=== PATIENT | female | born 1990 | race Hispanic/Latino ===

== ENCOUNTER 2024-11-18 10:46 | Inpatient (IN) | payer MEDICAID, OTHER ==
[~2024-11-18] VITALS: Ht 149.9 cm; Wt 79.4 kg
[~2024-11-18 10:46] MED LIST: IRON18TA PO; PREN-66 PO
--- NOTE | 2024-11-18 11:02 | ERN ---
General Chief Complaint: Fever Stated Complaint: FLU SYMPTOMS Time Seen by MD: 10:47 Time Seen by Midlevel: 10:47 Source: patient History of Present Illness Initial Comments 34-year-old female with no significant past medical history presenting to the emergency department with fever and lower back pain. Patient states three days ago she developed dysuria. She reports taking nily-dod-dhhjinh medication which helped improve her symptoms however today she developed a high fever with lower back pain and is concerned she may have a kidney infection. She also reports associated nausea and vomiting. Denies any other symptoms. Allergies: Coded Allergies: No Known Allergies (Unverified Allergy, Unknown, 11/08/15) Home Meds Reported Medications Iron (Iron) 18 Mg Tablet, 18 MG PO DAILY, TAB 11/08/15 Wpr462/Iron Fumarate/FA/Dss ( 19 Tablet) 1 Each Tablet, 1 EACH PO DAILY, TAB 11/08/15 Past Medical History Past Medical History: No Pertinent History Past Surgical History: BTL, ROS Dictation CONSTITUTIONAL: Negative except for HPI HEAD/FACE: Negative except for HPI EENT: Negative except for HPI RESPIRATORY: Negative except for HPI GASTROINTESTINAL/ABDOMINAL: Negative except for HPI GENITOURINARY: Negative except for HPI MUSCULOSKELETAL: Negative except for HPI INTEGUMENTARY: Negative except for HPI NEUROLOGICAL/PSYCH: Negative except for HPI HEMATOLOGIC/LYMPHATIC: Negative except for HPI All Systems Negative, Except as noted above. 13 point review of systems assessed and all negative except for above. Physical Exam Physical Exam Dictation Vital Signs reviewed General Appearance: Alert, oriented x 3, no acute distress, febrile Head and Face: non-traumatic. Eyes: PERRL, pink conjunctivas, eyelid no trauma, anterior chamber with arcus senilis. Ears: Pinnas intact and no signs of trauma or erythema ear canals clear and no discharge TM no erythema Nose: No discharge, no bleeding. Oropharynx: Mouth normal, tongue pink, pharynx clear,no erythema, tonsils no exudates, no abscesses noted, mucous membrane moist Neck: Supple, non-tender, no thyromegaly, no masses, no JVD, no bruits Breast:Deferred Chest:No tenderness, no crepitus, no paradoxical movement, no retractions Lungs:Clear, well-ventilated, symmetric, no rales, no wheezing, no rhonchi, no stridor, good breath sounds bilaterally Heart: Tachycardic, regular rhythm, no murmur, no gallops Vascular: no peripheral edema, Abdomen: Soft, positive bowel sounds, nondistended, no guarding, nontender, no rebound, no masses no hepatomegaly, no splenomegaly, no Yu's sign, no hernias. Rectal: Deferred Genital: Deferred Neurological: Normal speech, motor function intact, sensory function intact Musculoskeletal: Neck nontender, full range of motion, back nontender, full range of motion, Extremities: nontender, full range of motion Skin: Color pink, dry, no turgor, no rash, no lacerations, no abrasions, no contusions. Lymphatic: Deferred Results Laboratory and Microbiology Lab and Micro Result Laboratory Tests Test 11/18/24 11:12 11/18/24 12:25 White Blood Count 13.3 K/uL (4.8-10.8) H Red Blood Count 5.19 MIL/uL (4.00-5.50) Hemoglobin 10.1 g/dL (12.0-16.0) L Hematocrit 35.9 % (36-48) L Mean Corpuscular Volume 69.2 fL (79-99) L Mean Corpuscular Hemoglobin 19.5 pg (27.0-33.0) L Mean Corpuscular Hemoglobin Concent 28.1 g/dL (32.0-36.0) L Red Cell Distribution Width 19.1 % (11.0-15.5) H Platelet Count 269 K/uL (130-400) Mean Platelet Volume 11.1 fL (7.5-10.5) H Immature Granulocyte % (Auto) 0.5 % (0-1) Neutrophils (%) (Auto) 76.8 % (40.0-77.0) Lymphocytes (%) (Auto) 11.9 % (21.0-51.0) L Monocytes (%) (Auto) 10.4 % (3.0-13.0) Eosinophils (%) (Auto) 0.2 % (0.0-8.0) Basophils (%) (Auto) 0.2 % (0.0-5.0) Neutrophils # (Auto) 10.2 K/uL (1.8-7.7) H Lymphocytes # (Auto) 1.6 K/uL (1.0-4.8) Monocytes # (Auto) 1.4 K/uL (0.1-1.0) H Eosinophils # (Auto) 0.03 K/uL (0.00-0.70) Basophils # (Auto) 0.03 K/uL (0.00-0.20) Absolute Immature Granulocyte (auto 0.06 K/uL (0-1) Nucleated Red Blood Cells 0.0 % (0.0-0.19) Red Blood Cell Morphology See comments Sodium Level 132 mmol/L (136-145) L Potassium Level 3.3 mmol/L (3.5-5.1) L Chloride Level 95 mmol/L (101-111) L Carbon Dioxide Level 27 mmol/L (21-32) Blood Urea Nitrogen 6 mg/dL (7-18) L Creatinine 0.7 mg/dL (0.5-1.0) Glomerular Filtration Rate Calc 118 mL/min (>90) Random Glucose 118 mg/dL (70-105) H Lactic Acid Level 2.4 mmol/L (0.8-2.5) Total Calcium 9.5 mg/dL (8.5-10.1) Procalcitonin 0.64 ng/mL (0.05-0.5) H Serum Test, Qualitative NEGATIVE (NEGATIVE) Urine Color YELLOW (YELLOW) Urine Appearance CLOUDY (CLEAR) H Urine pH 7.0 (5.0-8.0) Urine Specific [place] 1.007 (1.001-1.031) Urine Protein 50 mg/dL (NEGATIVE) H Urine Glucose (UA) NEGATIVE mg/dL (NEGATIVE) Urine Ketones NEGATIVE mg/dL (NEGATIVE) Urine Occult Blood SMALL (NEGATIVE) H Urine Nitrate 2+ (NEGATIVE) H Urine Bilirubin NEGATIVE mg/dL (NEGATIVE) Urine Urobilinogen 0.2 mg/dL (0.2-1.0) Urine Leukocyte Esterase 500 Damon/uL (NEGATIVE) H Urine RBC 2-5 /HPF (0-1) H Urine WBC 26-50 /HPF (0-1) H Urine Squamous Epithelial Cells MANY /HPF (0-2) Urine Amorphous Crystals (Auto) RARE /LPF (None Seen) Urine Bacteria MANY /HPF (None Seen) Labs Reviewed?: Yes MDM MDM: Differential diagnosis: Sepsis, pyelonephritis, urinary tract infection Rationale: Tests considered and ordered secondary to shared decision making include: Previous outside records reviewed: Old ER visits. Risk of complication and/or morbidity or mortality of patient management: None Medications-Per medication reconciliation Need for hospitalization: Patient does meet criteria for hospitalization. Need for emergency major/minor surgery: No There are no social concerns with this patient. Prescription drug management Prescriptions will include symptomatic care Patient's prior external medical records from other ER visits were reviewed by me as indicated. Prior testing and results from previous visits were reviewed. Prior tests were taken into account with medical decision making and resource utilization, independent historian/historians were used to obtain complete medical history. I independently interpreted the test that were performed, results were reviewed by me and considered findings on radiology if ordered. Medical management and examination interpretation discussions were had by me with other qualified healthcare professionals as indicated for the patient's care. ED Course Orders Procedure Category Date Status Time Cbc With Differential LAB 11/18/24 Complete 10:52 Basic Metabolic Panel LAB 11/18/24 Complete 10:52 Blood Cult YUDITH 11/18/24 In Process 10:52 Lactic Acid LAB 11/18/24 Complete 10:52 Testing, LAB 11/18/24 Complete Serum Hcg 10:52 Procalcitonin LAB 11/18/24 Complete 10:52 Urinalysis Profile LAB 11/18/24 Complete 10:52 Acetaminophen 500mg PHA 11/18/24 Complete Tab (Tylenol 500mg T 11:00 0.9%Nacl 1000ml (Ns PHA 11/18/24 Complete 1000ml) 11:00 Ceftriaxone 2gm Vial PHA 11/18/24 Complete (Rocephin 2gm Inj) 11:00 0.9%Nacl 1000ml (Ns PHA 11/18/24 In Process 1000ml) 13:00 Culture Urine YUDITH 11/18/24 Logged 12:51 Current Medications Medications (Trade) Dose Ordered Sig/Deuce Route PRN Reason Start Time Stop Time Status Last Admin Dose Admin Acetaminophen (TYLenol 500MG TAB) 1,000 mg ONCE ONCE PO 11/18/24 11:11/18/24 11:03 DC Ceftriaxone Sodium (Rocephin 2gm Inj) 2 gm ONCE ONCE IVPB 11/18/24 11:00 11/18/24 11:03 DC Sodium Chloride 1,000 ml @ 0 mls/hr ONCE ONCE IV 11/18/24 11:00 11/18/24 11:03 DC Sodium Chloride 2,394 ml @ 798 mls/hr ONCE ONCE IV 11/18/24 13:00 11/18/24 15:59 Vital Signs Date Time Temp Pulse Resp B/P (MAP) Pulse Ox O2 Delivery O2 Flow Rate FiO2 11/18/24 10:50 102.2 127 18 154/111 97 Room Air 0 DX & DISP Disposition: Inpatient Decision to Admit Date: Nov 18, 2024 Decision to Admit Time: 12:57 Departure Impression: Primary Impression: Sepsis Additional Impressions: Urinary tract infection, Leukocytosis, Elevated procalcitonin Condition: Stable Referrals: ADRIA FRAZIER MD (PCP) I have reviewed the case, and I agree with, Diagnosis and Plan I performed the substantive portion of the visit. I have reviewed and personal ly made and approve the management plan that is documented in the note by myself or the HAYLIE. I acknowledge for responsibility for the patient's management plan. HELEN LUCIO Nov 18, 2024 11:02
--- NOTE | 2024-11-18 11:30 | NUR ---
LAC-2.4 ERMD MADE AWARE
[2024-11-18 11:34] LABS: CREATININE 0.7 mg/dL (0.5-1.0); POTASSIUM 3.3 mmol/L (3.5-5.1)
[2024-11-18 11:40] LABS: BASOPHILS # (AUTO) 0.03 K/uL (0.00-0.20); BASOPHILS % (AUTO) 0.2 % (0.0-5.0); EOSINOPHILS # (AUTO) 0.03 K/uL (0.00-0.70); EOSINOPHILS % (AUTO) 0.2 % (0.0-8.0); HEMATOCRIT 35.9 % (36-48); IMMATURE GRANULOCYTE ABSOLUTE 0.06 K/uL (0-1); LYMPHOCYTES # (AUTO) 1.6 K/uL (1.0-4.8); LYMPHOCYTES % (AUTO) 11.9 % (21.0-51.0); MEAN CORPUSCULAR HEMOGLOBIN 19.5 pg (27.0-33.0); MEAN CORPUSCULAR HGB CONC 28.1 g/dL (32.0-36.0); MEAN CORPUSCULAR VOLUME 69.2 fL (79-99); MONOCYTES # (AUTO) 1.4 K/uL (0.1-1.0); MONOCYTES % (AUTO) 10.4 % (3.0-13.0); NEUTROPHILS # (AUTO) 10.2 K/uL (1.8-7.7); NEUTROPHILS % (AUTO) 76.8 % (40.0-77.0); PLATELET COUNT (AUTO) 269 K/uL (130-400); RED BLOOD CELL COUNT(AUTO) 5.19 MIL/uL (4.00-5.50); RED CELL DISTRIBUTION WIDTH 19.1 % (11.0-15.5); WHITE BLOOD COUNT (AUTO) 13.3 K/uL (4.8-10.8)
[2024-11-18 12:48] LABS: APPEARANCE,URINE CLOUDY (CLEAR); BILIRUBIN,URINE NEGATIVE (NEGATIVE); COLOR,URINE YELLOW (YELLOW); GLUCOSE, URINE (UA) NEGATIVE (NEGATIVE); KETONES,URINE NEGATIVE (NEGATIVE); LEUKOCYTE ESTERASE ,URINE 500 Leu/uL (NEGATIVE); NITRATE,URINE 2+ (NEGATIVE); OCCULT BLOOD,URINE SMALL (NEGATIVE); PROTEIN,URINE 50 mg/dL (NEGATIVE); UROBILINOGEN,URINE 0.2 mg/dL (0.2-1.0)
[2024-11-18 12:51] LABS: ADD UA MICROSCOPIC YES
[2024-11-18 12:53] LABS: BACTERIA,URINE MANY /HPF (None Seen); MUCUS,URINE RARE LPF (None Seen); SQUAMOUS EPITHELIAL CELL,UR MANY /HPF (0-2); WBC,URINE 26-50 /HPF (0-1)
[2024-11-18] MEDS: 0.9%NACL 1000ML 2,394 ML IV ONE (12:57)
[2024-11-18] MEDS: 0.9%NACL 1000ML 1,000 ML IV ONE (12:57)
[2024-11-18] MEDS: CEFTRIAXONE 2GM VIAL IVPB ONE (12:58)
[2024-11-18] MEDS: acetaMINOPHEN 500 MG TABLET PO ONE (12:58)
--- NOTE | 2024-11-18 13:22 | HP ---
[facility] HISTORY AND PHYSICAL Date of Service: Nov 18, 2024 Time of Service: 13:22 HISTORY OF PRESENT ILLNESS: [ ] REVIEW OF SYSTEMS CONSTITUTIONAL: Denies fevers, chills, or night sweats. No unintentional weight loss reported. NEUROLOGICAL: Denies headache, amaurosis fugax, motor weakness, sensory deficit, vertigo/spinning sensation, gait abnormalities, or tremors. ENT: No hearing loss, otalgia, otorrhea, rhinitis, rhinorrhea, hoarseness, or sore throat. CARDIOVASCULAR: Denies any exertional angina, dyspnea on exertion, orthopnea, paroxysmal nocturnal dyspnea, palpitations, life-threatening arrhythmias, claudication. PULMONARY: Denies any shortness of breath, cough, phlegm/sputum, hemoptysis, pleuritic chest pain. SLEEP: Denies morning headaches, daytime somnolence or napping. Denies difficulty falling asleep, staying asleep, waking from sleep. Denies knowledge of snoring. GASTROINTESTINAL: Denies any type of dysphagia to either liquids or solids. Denies nausea, vomiting, pyrosis, early satiety, abdominal pain, diarrhea, constipation, or changes in stool consistency or caliber. Denies coffee-ground emesis, hematemesis, hematochezia, or melanotic stools. GENITOURINARY: Denies frequency, urgency, nocturia, hematuria or incontinence (Storage/Irritative symptoms.) Low urinary stream, straining to void, urinary intermittency or hesitancy, splitting of the voiding stream, terminal dribbling. ENDOCRINOLOGIC: Denies polyuria, polydipsia, polyphagia or heat/cold intolerances. HEMATOLOGIC: Denies thrombophilia/previous clots, or coagulopathy/bleeding disorders. ONCOLOGIC: Denies personal history of malignancy. DERMATOLOGIC: Denies rashes or pruritus. PSYCHIATRIC: Denies any suicidal or homicidal ideation. Denies hallucinations. PAST MEDICAL HISTORY: [ ] PAST SURGICAL HISTORY: [ ] PAST SOCIAL HISTORY: [ ] FAMILY HISTORY: [ ] Coded Allergies: No Known Allergies (Unverified Allergy, Unknown, 11/08/15) PHYSICAL EXAM GENERAL APPEARANCE: The patient is awake, alert, and oriented, in no acute cardiopulmonary distress. NEUROLOGICAL: Cranial nerves II-XII grossly intact. Motor is 5/5 in bilateral upper and lower extremities proximal to distal. No sensory deficits. HEENT: Face is symmetric. Pupils are equal and reactive. Extraocular movements are intact. NECK: Supple. No JVD. No thyromegaly. No submental, submandibular, pre- /postauricular, occipital or supraclavicular lymphadenopathy. CHEST: Normal chest expansion. No Telemetry. LUNGS: Absence of any rales, rhonchi or any wheezing. CARDIOVASCULAR: Regular. S1 and S2 normal. No appreciable rubs, murmurs or gallops. ABDOMEN: Soft, nontender, and nondistended. There is no rebound, voluntary guarding, or rigidity. : Deferred. No Vázquez. EXTREMITIES: Non-edematous and not cyanotic. No clubbing. Good capillary refill. SKIN: No skin breakdown. Vital Sign (Last 24 Hours) 11/18/24 10:50 Temp 102.2 Pulse 127 Resp 18 B/P (MAP) 154/111 Pulse Ox 97 O2 Delivery Room Air O2 Flow Rate 0 LABS: Laboratory: Test 11/18/24 12:25 11/18/24 11:12 Range/Units Urine Color YELLOW YELLOW Urine Appearance CLOUDY H CLEAR Urine pH 7.0 5.0-8.0 Urine Specific [place] 1.007 1.001-1.031 Urine Protein 50 H NEGATIVE mg/dL Urine Glucose (UA) NEGATIVE NEGATIVE mg/dL Urine Ketones NEGATIVE NEGATIVE mg/dL Urine Occult Blood SMALL H NEGATIVE Urine Nitrate 2+ H NEGATIVE Urine Bilirubin NEGATIVE NEGATIVE mg/dL Urine Urobilinogen 0.2 0.2-1.0 mg/dL Urine Leukocyte Esterase 500 H NEGATIVE Damon/uL Urine RBC 2-5 H 0-1 /HPF Urine WBC 26-50 H 0-1 /HPF Urine Squamous Epithelial Cells MANY 0-2 /HPF Urine Amorphous Crystals (Auto) RARE None Seen /LPF Urine Bacteria MANY None Seen /HPF White Blood Count 13.3 H 4.8-10.8 K/uL Red Blood Count 5.19 4.00-5.50 MIL/uL Hemoglobin 10.1 L 12.0-16.0 g/dL Hematocrit 35.9 L 36-48 % Mean Corpuscular Volume 69.2 L 79-99 fL Mean Corpuscular Hemoglobin 19.5 L 27.0-33.0 pg Mean Corpuscular Hemoglobin Concent 28.1 L 32.0-36.0 g/dL Red Cell Distribution Width 19.1 H 11.0-15.5 % Platelet Count 269 130-400 K/uL Mean Platelet Volume 11.1 H 7.5-10.5 fL Immature Granulocyte % (Auto) 0.5 0-1 % Neutrophils (%) (Auto) 76.8 40.0-77.0 % Lymphocytes (%) (Auto) 11.9 L 21.0-51.0 % Monocytes (%) (Auto) 10.4 3.0-13.0 % Eosinophils (%) (Auto) 0.2 0.0-8.0 % Basophils (%) (Auto) 0.2 0.0-5.0 % Neutrophils # (Auto) 10.2 H 1.8-7.7 K/uL Lymphocytes # (Auto) 1.6 1.0-4.8 K/uL Monocytes # (Auto) 1.4 H 0.1-1.0 K/uL Eosinophils # (Auto) 0.03 0.00-0.70 K/uL Basophils # (Auto) 0.03 0.00-0.20 K/uL Absolute Immature Granulocyte (auto 0.06 0-1 K/uL Nucleated Red Blood Cells 0.0 0.0-0.19 % Red Blood Cell Morphology See comments Sodium Level 132 L 136-145 mmol/L Potassium Level 3.3 L 3.5-5.1 mmol/L Chloride Level 95 L 101-111 mmol/L Carbon Dioxide Level 27 21-32 mmol/L Blood Urea Nitrogen 6 L 7-18 mg/dL Creatinine 0.7 0.5-1.0 mg/dL Glomerular Filtration Rate Calc 118 >90 mL/min Random Glucose 118 H 70-105 mg/dL Lactic Acid Level 2.4 0.8-2.5 mmol/L Total Calcium 9.5 8.5-10.1 mg/dL Procalcitonin 0.64 H 0.05-0.5 ng/mL Serum Test, Qualitative NEGATIVE NEGATIVE Current Medications Medications (Trade) Dose Ordered Sig/Deuce Route PRN Reason Start Time Stop Time Status Last Admin Dose Admin Acetaminophen (TYLenol 325MG TAB) 650 mg Q6H PRN PO MILD PAIN (1-3) 11/18/24 13:30 12/18/24 13:29 Famotidine (Pepcid 20mg Vial) 20 mg BID IV 11/18/24 21:00 12/18/24 20:59 Magnesium Sulfate 50 ml @ 0 mls/hr PROTOCOL IV 11/18/24 13:30 12/18/24 13:29 Ondansetron HCl (zoFRAN 4MG INJ) 4 mg Q6H PRN IVP NAUSEA/VOMITING 11/18/24 13:30 12/18/24 13:29 Piperacillin Sod/ Tazobactam Sod (Zosyn 3.375gm+NS 50ml) 3.375 gm Q8H IVPB 11/18/24 13:30 11/28/24 13:29 Sodium Chloride 1,000 ml @ 75 mls/hr [id number] IV 11/18/24 15:30 12/18/24 15:29 Sodium Chloride (NS 50ml) 50 ml AD IV 11/18/24 13:30 11/18/24 13:13 DC DIAGNOSTICS / RADIOLOGY: [ ] ASSESSMENT: [ ] PLAN: [ ] IZABEL JOHNSON MD Nov 18, 2024 13:22
[2024-11-18 13:27] LABS: INR 1.12 (0.85-1.15); PROTHROMBIN TIME 11.7 SEC (9.6-11.6)
[2024-11-18 13:28] LABS: PARTIAL THROMBOPLASTIN TIME 21.7 SEC (26.3-35.5)
[2024-11-18] MEDS ORDERED: 0.9%NACL 50ML IV SCH (13:30)
[2024-11-18] MEDS ORDERED: MAGNESIUM 2GM PREMIX 50ML 50 ML IV SCH (13:30)
--- NOTE | 2024-11-18 13:34 | HP ---
[facility] HISTORY AND PHYSICAL Date of Service: Nov 18, 2024 Time of Service: 13:28 HISTORY OF PRESENT ILLNESS: Date of service: 11/18/2024, patient was seen in ER hallway This is a 34-year-old female with no underlying history of significant past medical history who presented to the ER for further evaluation of fever and lower back pain. Patient states that symptoms have been ongoing since Saturday where she noticed she was having nausea with foul-smelling urine. Denies any vaginal discharge. She took [id number] medications as she suspected she was having UTI. She complains of having nausea and diarrhea as well, she complains of having suprapubic discomfort. Denies any rhinorrhea or congestion otherwise. On presentation to the hospital, patient was noted to be febrile with T-max of 102.2 F, heart rate of 127, blood pressure of 154/111. Labs [place] [address], hemoglobin of 10.1, platelet count of 894940. BMP remarkable for sodium of 132, potassium 3.3, chloride of 95, creatinine of 0.7, lactic acid of 2.4 and procalcitonin of 0.64. Urinalysis significant for cloudy urine with nitrite positive, leukocyte esterase positive, pyuria, bacteriuria. Patient will be admitted for further management of sepsis secondary to complicated UTI. We will monitor this patient closely anticipate hospitalization for 48-72 hours given underlying sepsis. Consultation with Infectious Disease will be requested as well. REVIEW OF SYSTEMS CONSTITUTIONAL: Denies fevers, chills, or night sweats. No unintentional weight loss reported. NEUROLOGICAL: Denies headache, amaurosis fugax, motor weakness, sensory deficit, vertigo/spinning sensation, gait abnormalities, or tremors. ENT: No hearing loss, otalgia, otorrhea, rhinitis, rhinorrhea, hoarseness, or sore throat. CARDIOVASCULAR: Denies any exertional angina, dyspnea on exertion, orthopnea, paroxysmal nocturnal dyspnea, palpitations, life-threatening arrhythmias, claudication. PULMONARY: Denies any shortness of breath, cough, phlegm/sputum, hemoptysis, pleuritic chest pain. SLEEP: Denies morning headaches, daytime somnolence or napping. Denies difficulty falling asleep, staying asleep, waking from sleep. Denies knowledge of snoring. GASTROINTESTINAL: Patient reports having 1-2 episodes of diarrhea GENITOURINARY: Increased urinary frequency with foul-smelling urine, suprapubic discomfort ENDOCRINOLOGIC: Denies polyuria, polydipsia, polyphagia or heat/cold intolerances. HEMATOLOGIC: Denies thrombophilia/previous clots, or coagulopathy/bleeding disorders. ONCOLOGIC: Denies personal history of malignancy. DERMATOLOGIC: Denies rashes or pruritus. PSYCHIATRIC: Denies any suicidal or homicidal ideation. Denies hallucinations. PAST MEDICAL HISTORY: Prior history of heavy periods which patient states has improved, obesity PAST SURGICAL HISTORY: History of , tubal ligation PAST SOCIAL HISTORY: Denies active smoking or alcohol consumption FAMILY HISTORY: Denies pertinent family history Allergies: No known drug allergies Coded Allergies: No Known Allergies (Unverified Allergy, Unknown, 11/08/15) PHYSICAL EXAM GENERAL APPEARANCE: The patient is awake, alert, and oriented, in no acute cardiopulmonary distress. NEUROLOGICAL: Cranial nerves II-XII grossly intact. Motor is 5/5 in bilateral upper and lower extremities proximal to distal. No sensory deficits. HEENT: Face is symmetric. Pupils are equal and reactive. Extraocular movements are intact. NECK: Supple. No JVD. No thyromegaly. No submental, submandibular, pre- /postauricular, occipital or supraclavicular lymphadenopathy. CHEST: Normal chest expansion. No Telemetry. LUNGS: Absence of any rales, rhonchi or any wheezing. CARDIOVASCULAR: Regular. S1 and S2 normal. No appreciable rubs, murmurs or gallops. ABDOMEN: Soft, nontender, and nondistended. Mild tenderness to palpation of the suprapubic region : Deferred. No Vázquez. EXTREMITIES: Non-edematous and not cyanotic. No clubbing. Good capillary refill. SKIN: No skin breakdown. Vital Sign (Last 24 Hours) 11/18/24 10:50 Temp 102.2 Pulse 127 Resp 18 B/P (MAP) 154/111 Pulse Ox 97 O2 Delivery Room Air O2 Flow Rate 0 LABS: Laboratory: Test 11/18/24 12:25 11/18/24 11:12 Range/Units Urine Color YELLOW YELLOW Urine Appearance CLOUDY H CLEAR Urine pH 7.0 5.0-8.0 Urine Specific [place] 1.007 1.001-1.031 Urine Protein 50 H NEGATIVE mg/dL Urine Glucose (UA) NEGATIVE NEGATIVE mg/dL Urine Ketones NEGATIVE NEGATIVE mg/dL Urine Occult Blood SMALL H NEGATIVE Urine Nitrate 2+ H NEGATIVE Urine Bilirubin NEGATIVE NEGATIVE mg/dL Urine Urobilinogen 0.2 0.2-1.0 mg/dL Urine Leukocyte Esterase 500 H NEGATIVE Damon/uL Urine RBC 2-5 H 0-1 /HPF Urine WBC 26-50 H 0-1 /HPF Urine Squamous Epithelial Cells MANY 0-2 /HPF Urine Amorphous Crystals (Auto) RARE None Seen /LPF Urine Bacteria MANY None Seen /HPF White Blood Count 13.3 H 4.8-10.8 K/uL Red Blood Count 5.19 4.00-5.50 MIL/uL Hemoglobin 10.1 L 12.0-16.0 g/dL Hematocrit 35.9 L 36-48 % Mean Corpuscular Volume 69.2 L 79-99 fL Mean Corpuscular Hemoglobin 19.5 L 27.0-33.0 pg Mean Corpuscular Hemoglobin Concent 28.1 L 32.0-36.0 g/dL Red Cell Distribution Width 19.1 H 11.0-15.5 % Platelet Count 269 130-400 K/uL Mean Platelet Volume 11.1 H 7.5-10.5 fL Immature Granulocyte % (Auto) 0.5 0-1 % Neutrophils (%) (Auto) 76.8 40.0-77.0 % Lymphocytes (%) (Auto) 11.9 L 21.0-51.0 % Monocytes (%) (Auto) 10.4 3.0-13.0 % Eosinophils (%) (Auto) 0.2 0.0-8.0 % Basophils (%) (Auto) 0.2 0.0-5.0 % Neutrophils # (Auto) 10.2 H 1.8-7.7 K/uL Lymphocytes # (Auto) 1.6 1.0-4.8 K/uL Monocytes # (Auto) 1.4 H 0.1-1.0 K/uL Eosinophils # (Auto) 0.03 0.00-0.70 K/uL Basophils # (Auto) 0.03 0.00-0.20 K/uL Absolute Immature Granulocyte (auto 0.06 0-1 K/uL Nucleated Red Blood Cells 0.0 0.0-0.19 % Red Blood Cell Morphology See comments Prothrombin Time 11.7 H 9.6-11.6 SEC Prothromb Time International Ratio 1.12 0.85-1.15 Sodium Level 132 L 136-145 mmol/L Potassium Level 3.3 L 3.5-5.1 mmol/L Chloride Level 95 L 101-111 mmol/L Carbon Dioxide Level 27 21-32 mmol/L Blood Urea Nitrogen 6 L 7-18 mg/dL Creatinine 0.7 0.5-1.0 mg/dL Glomerular Filtration Rate Calc 118 >90 mL/min Random Glucose 118 H 70-105 mg/dL Lactic Acid Level 2.4 0.8-2.5 mmol/L Total Calcium 9.5 8.5-10.1 mg/dL Procalcitonin 0.64 H 0.05-0.5 ng/mL Serum Test, Qualitative NEGATIVE NEGATIVE Current Medications Medications (Trade) Dose Ordered Sig/Deuce Route PRN Reason Start Time Stop Time Status Last Admin Dose Admin Acetaminophen (TYLenol 325MG TAB) 650 mg Q6H PRN PO MILD PAIN (1-3) 11/18/24 13:30 12/18/24 13:29 Famotidine (Pepcid 20mg Vial) 20 mg BID IV 11/18/24 21:00 12/18/24 20:59 Magnesium Sulfate 50 ml @ 0 mls/hr PROTOCOL IV 11/18/24 13:30 12/18/24 13:29 Ondansetron HCl (zoFRAN 4MG INJ) 4 mg Q6H PRN IVP NAUSEA/VOMITING 11/18/24 13:30 12/18/24 13:29 Piperacillin Sod/ Tazobactam Sod (Zosyn 3.375gm+NS 50ml) 3.375 gm Q8H IVPB 11/18/24 13:30 11/28/24 13:29 Sodium Chloride 1,000 ml @ 75 mls/hr [id number] IV 11/18/24 15:30 12/18/24 15:29 Sodium Chloride (NS 50ml) 50 ml AD IV 11/18/24 13:30 11/18/24 13:13 DC DIAGNOSTICS / RADIOLOGY: Chest x-ray and renal ultrasound is pending ASSESSMENT: Complicated urinary tract infection with sepsis, POA Dehydration, POA Acute diarrhea, POA Hypokalemia, POA Lactic acidosis, POA, 2/2 underlying sepsis Hypovolemic hyponatremia, POA Iron deficiency anemia, POA Leukocytosis, POA PLAN: Patient will be admitted to medical-surgical floor Urinalysis suggestive of significant UTI, we will follow up urine culture, blood culture We will obtain renal ultrasound and chest x-ray, flu and COVID panel Sepsis bolus of fluids will be given and we will start maintenance IV fluid with NS at 75 cc an hour, monitor lactic acid trend closely tonight We will have Infectious Disease follow up with the patient, patient received IV Rocephin in the ER, we will start patient on IV Zosyn renally dose We will see how patient progresses in the next 48-72 hours All labs will be repeated in the morning DVT prophylaxis with SCDs and Lovenox, GI prophylaxis with Pepcid Date of service: 11/18/2024 Plan of care was discussed with patient at bedside, Isidro Vera MD Advanced Care Planning: Which of the following were discussed: Hospice care: Yes __ No _X_ Therapeutic options: Yes _X_ No __ Advance directives: Yes _X_ No __ Other discussions: Discussed with who?: Patient Voluntary nature of this service was explained to the patient? Yes _x_ No __ Amount of time spent: 20 minutes ISIDRO VERA MD Nov 18, 2024 13:34
[2024-11-18 13:37] LABS: SARS-CoV-2, RNA, NAAT NEGATIVE SARS CoV-2 (NEGATIVE)
[2024-11-18 13:42] LABS: ALBUMIN 4.1 g/dL (3.5-5.0); BILIRUBIN,DIRECT 0.1 mg/dL (0.0-0.3); BILIRUBIN,TOTAL 0.5 mg/dL (0.2-1.0); MAGNESIUM 2.3 mg/dL (1.80-2.40); TOTAL PROTEIN, SERUM 9.3 g/dL (6.0-8.3)
[2024-11-18 13:44] LABS: INFLUENZA TYPE A Negative For Type A (NEGATIVE); INFLUENZA TYPE B Negative For Type B (NEGATIVE)
[2024-11-18] MEDS: ZOSYN 3.375GM +NS 50ML IVPB SCH (13:59)
[2024-11-18] MEDS: PoTASSium chloRIDE 20MEQ ER 20 MEQ ERTAB PO ONE (13:59)
--- NOTE | 2024-11-18 14:14 | HMCIMG ---
PORTABLE CHEST RADIOGRAPH INDICATION: SEPSIS, ASSESS FOR ANY SIGNIFICANT INFILTRATES COMPARISON: None FINDINGS: Heart size is normal. The pulmonary vascularity and dilcia appear normal. No abnormal pulmonary parenchymal opacity or consolidation identified. No significant pleural effusion noted. No pneumothorax detected. IMPRESSION: No radiographic evidence for any acute cardiopulmonary process.
[2024-11-18] MEDS: 0.9%NACL 1000ML 1,000 ML IV SCH (15:18)
--- NOTE | 2024-11-18 16:34 | HMCIMG ---
ULTRASOUND RENAL COMPLETE INDICATION: Urosepsis TECHNIQUE: Routine ultrasound of the kidneys and urinary bladder with grayscale and color Doppler imaging was performed in real-time, and subsequently made available for review. COMPARISON: No prior studies available for comparison. FINDINGS: The right kidney measures 12.0 x 6.2 x 5.3 cm. No abnormal mass demonstrated. No evidence for hydronephrosis or shadowing stone. The left kidney measures 10.1 x 5.1 x 4.6 cm. No abnormal mass demonstrated. No evidence for hydronephrosis or shadowing stone. No evidence for any renal hypervascularity. Urinary bladder appears normal. No free fluid demonstrated. IMPRESSION: Normal sonographic appearance of the kidneys and urinary bladder.
[2024-11-18] MEDS: acetaMINOPHEN 325 MG TAB PO PRN (20:13)
[2024-11-18] MEDS: FAMOTIDINE 20MG VIAL IV SCH (20:13)
[2024-11-18] MEDS: ondanSETRON 4MG INJ IVP PRN (20:17)
[2024-11-18 21:32] VITALS: TEMP 100.7
[2024-11-18 22:00] VITALS: BP 127/74; PULSE 91; RESP 16; TEMP 98; O2SAT 100
[2024-11-18] MEDS ORDERED: ketOROlac 15MG/ML VIAL (15MG/ML) IV PRN (22:30)
[2024-11-19] VITALS (8 sets, daily range): BP systolic 106–128; BP diastolic 68–81; PULSE 65–93; RESP 16–19; TEMP 98.1–99.7; O2SAT 98–100
[2024-11-19 06:56] LABS: BASOPHILS # (AUTO) 0.02 K/uL (0.00-0.20); BASOPHILS % (AUTO) 0.2 % (0.0-5.0); EOSINOPHILS # (AUTO) 0.05 K/uL (0.00-0.70); EOSINOPHILS % (AUTO) 0.6 % (0.0-8.0); HEMATOCRIT 28.8 % (36-48); IMMATURE GRANULOCYTE ABSOLUTE 0.03 K/uL (0-1); LYMPHOCYTES # (AUTO) 1.5 K/uL (1.0-4.8); MEAN CORPUSCULAR HEMOGLOBIN 19.4 pg (27.0-33.0); MEAN CORPUSCULAR HGB CONC 28.1 g/dL (32.0-36.0); MEAN CORPUSCULAR VOLUME 69.1 fL (79-99); MONOCYTES # (AUTO) 0.8 K/uL (0.1-1.0); MONOCYTES % (AUTO) 9.2 % (3.0-13.0); NEUTROPHILS # (AUTO) 6.1 K/uL (1.8-7.7); NEUTROPHILS % (AUTO) 71.6 % (40.0-77.0); PLATELET COUNT (AUTO) 229 K/uL (130-400); RED BLOOD CELL COUNT(AUTO) 4.17 MIL/uL (4.00-5.50); RED CELL DISTRIBUTION WIDTH 18.6 % (11.0-15.5); WHITE BLOOD COUNT (AUTO) 8.5 K/uL (4.8-10.8)
[2024-11-19 07:20] LABS: % IRON SATURATION 5.2 % (22-44)
[2024-11-19 07:23] LABS: ALBUMIN 2.9 g/dL (3.5-5.0); BILIRUBIN,TOTAL 0.4 mg/dL (0.2-1.0); CREATININE 0.6 mg/dL (0.5-1.0); MAGNESIUM 2.1 mg/dL (1.80-2.40); POTASSIUM 3.9 mmol/L (3.5-5.1)
--- NOTE | 2024-11-19 13:41 | PN ---
[facility] PROGRESS NOTE Date of Service: Nov 19, 2024 Time of Service: 13:40 SUBJECTIVE: [ ] 11/19/2024. Patient was seen and examined she was some mild lower abdominal discomfort otherwise asymptomatic and doing REVIEW OF SYSTEMS CONSTITUTIONAL: Denies fevers, chills, or night sweats. No unintentional weight loss reported. NEUROLOGICAL: Denies headache, amaurosis fugax, motor weakness, sensory deficit, vertigo/spinning sensation, gait abnormalities, or tremors. ENT: No hearing loss, otalgia, otorrhea, rhinitis, rhinorrhea, hoarseness, or sore throat. CARDIOVASCULAR: Denies any exertional angina, dyspnea on exertion, orthopnea, paroxysmal nocturnal dyspnea, palpitations, life-threatening arrhythmias, claudication. PULMONARY: Denies any shortness of breath, cough, phlegm/sputum, hemoptysis, pleuritic chest pain. SLEEP: Denies morning headaches, daytime somnolence or napping. Denies difficulty falling asleep, staying asleep, waking from sleep. Denies knowledge of snoring. GASTROINTESTINAL: Patient reports having 1-2 episodes of diarrhea GENITOURINARY: Increased urinary frequency with foul-smelling urine, suprapubic discomfort ENDOCRINOLOGIC: Denies polyuria, polydipsia, polyphagia or heat/cold intolerances. HEMATOLOGIC: Denies thrombophilia/previous clots, or coagulopathy/bleeding disorders. ONCOLOGIC: Denies personal history of malignancy. DERMATOLOGIC: Denies rashes or pruritus. PSYCHIATRIC: Denies any suicidal or homicidal ideation. Denies hallucinations. PHYSICAL EXAM GENERAL APPEARANCE: The patient is awake, alert, and oriented, in no acute cardiopulmonary distress. NEUROLOGICAL: Cranial nerves II-XII grossly intact. Motor is 5/5 in bilateral upper and lower extremities proximal to distal. No sensory deficits. HEENT: Face is symmetric. Pupils are equal and reactive. Extraocular movements are intact. NECK: Supple. No JVD. No thyromegaly. No submental, submandibular, pre- /postauricular, occipital or supraclavicular lymphadenopathy. CHEST: Normal chest expansion. No Telemetry. LUNGS: Absence of any rales, rhonchi or any wheezing. CARDIOVASCULAR: Regular. S1 and S2 normal. No appreciable rubs, murmurs or gallops. ABDOMEN: Soft, nontender, and nondistended. Mild tenderness to palpation of the suprapubic region : Deferred. No Vázquez. EXTREMITIES: Non-edematous and not cyanotic. No clubbing. Good capillary refi ll. SKIN: No skin breakdown. Vital Signs (last 8hr) Date Time Temp Pulse Resp B/P (MAP) Pulse Ox O2 Delivery O2 Flow Rate FiO2 11/19/24 11:44 98.6 88 18 114/81 99 11/19/24 08:03 98.8 93 19 106/79 98 LABS: Laboratory: Test 11/19/24 06:50 11/18/24 15:12 11/18/24 13:10 11/18/24 12:25 Range/Units White Blood Count 8.5 # 4.8-10.8 K/uL Red Blood Count 4.17 4.00-5.50 MIL/uL Hemoglobin 8.1 L 12.0-16.0 g/dL Hematocrit 28.8 L 36-48 % Mean Corpuscular Volume 69.1 L 79-99 fL Mean Corpuscular Hemoglobin 19.4 L 27.0-33.0 pg Mean Corpuscular Hemoglobin Concent 28.1 L 32.0-36.0 g/dL Red Cell Distribution Width 18.6 H 11.0-15.5 % Platelet Count 229 130-400 K/uL Mean Platelet Volume 10.5 7.5-10.5 fL Immature Granulocyte % (Auto) 0.4 0-1 % Neutrophils (%) (Auto) 71.6 40.0-77.0 % Lymphocytes (%) (Auto) 18.0 L 21.0-51.0 % Monocytes (%) (Auto) 9.2 3.0-13.0 % Eosinophils (%) (Auto) 0.6 0.0-8.0 % Basophils (%) (Auto) 0.2 0.0-5.0 % Neutrophils # (Auto) 6.1 1.8-7.7 K/uL Lymphocytes # (Auto) 1.5 1.0-4.8 K/uL Monocytes # (Auto) 0.8 0.1-1.0 K/uL Eosinophils # (Auto) 0.05 0.00-0.70 K/uL Basophils # (Auto) 0.02 0.00-0.20 K/uL Absolute Immature Granulocyte (auto 0.03 0-1 K/uL Nucleated Red Blood Cells 0.0 0.0-0.19 % Sodium Level 139 136-145 mmol/L Potassium Level 3.9 3.5-5.1 mmol/L Chloride Level 106 101-111 mmol/L Carbon Dioxide Level 27 21-32 mmol/L Blood Urea Nitrogen 3 L 7-18 mg/dL Creatinine 0.6 0.5-1.0 mg/dL Glomerular Filtration Rate Calc 122 >90 mL/min Random Glucose 97 70-105 mg/dL Total Calcium 8.4 L 8.5-10.1 mg/dL Magnesium Level 2.10 1.80-2.40 mg/dL Iron Level 14 L 50-170 mcg/dL Total Iron Binding Capacity 265 250-450 mcg/dL Percent Iron Saturation 5.2 L 22-44 % Ferritin 38 15-150 ng/mL Total Bilirubin 0.4 0.2-1.0 mg/dL Aspartate Amino Transf (AST/SGOT) 13 10-37 U/L Alanine Aminotransferase (ALT/SGPT) 19 12-78 U/L Alkaline Phosphatase 73 50-136 U/L Total Protein 7.0 # 6.0-8.3 g/dL Albumin 2.9 #L 3.5-5.0 g/dL Lactic Acid Level 2.0 0.8-2.5 mmol/L Influenza Type A Antigen Negative For Type A NEGATIVE Influenza Type B Antigen Negative For Type B NEGATIVE SARS-CoV-2, RNA, NAAT NEGATIVE SARS CoV-2 NEGATIVE Urine Color YELLOW YELLOW Urine Appearance CLOUDY H CLEAR Urine pH 7.0 5.0-8.0 Urine Specific [place] 1.007 1.001-1.031 Urine Protein 50 H NEGATIVE mg/dL Urine Glucose (UA) NEGATIVE NEGATIVE mg/dL Urine Ketones NEGATIVE NEGATIVE mg/dL Urine Occult Blood SMALL H NEGATIVE Urine Nitrate 2+ H NEGATIVE Urine Bilirubin NEGATIVE NEGATIVE mg/dL Urine Urobilinogen 0.2 0.2-1.0 mg/dL Urine Leukocyte Esterase 500 H NEGATIVE Damon/uL Urine RBC 2-5 H 0-1 /HPF Urine WBC 26-50 H 0-1 /HPF Urine Squamous Epithelial Cells MANY 0-2 /HPF Urine Amorphous Crystals (Auto) RARE None Seen /LPF Urine Bacteria MANY None Seen /HPF Test 11/18/24 11:12 Range/Units Red Blood Cell Morphology See comments Prothrombin Time 11.7 H 9.6-11.6 SEC Prothromb Time International Ratio 1.12 0.85-1.15 Activated Partial Thromboplast Time 21.7 L 26.3-35.5 SEC Direct Bilirubin 0.1 0.0-0.3 mg/dL C-Reactive Protein, Quantitative 135.70 H 0.5-3.0 mg/L Procalcitonin 0.64 H 0.05-0.5 ng/mL Serum Test, Qualitative NEGATIVE NEGATIVE Current Medications Medications (Trade) Dose Ordered Sig/Deuce Route PRN Reason Start Time Stop Time Status Last Admin Dose Admin Acetaminophen (TYLenol 325MG TAB) 650 mg Q6H PRN PO MILD PAIN (1-3) 11/18/24 13:30 12/18/24 13:29 11/18/24 20:13 650 MG Famotidine (Pepcid 20mg Vial) 20 mg BID IV 11/18/24 21:00 12/18/24 20:59 11/19/24 09:13 20 MG Ketorolac Tromethamine (toRADol) 15 mg Q12H PRN IV MODERATE PAIN (4-6) 11/18/24 22:30 11/20/24 22:30 Magnesium Sulfate 50 ml @ 0 mls/hr PROTOCOL IV 11/18/24 13:30 12/18/24 13:29 Ondansetron HCl (zoFRAN 4MG INJ) 4 mg Q6H PRN IVP NAUSEA/VOMITING 11/18/24 13:30 12/18/24 13:29 11/18/24 20:17 4 MG Piperacillin Sod/ Tazobactam Sod (Zosyn 3.375gm+NS 50ml) 3.375 gm Q8H IVPB 11/18/24 13:30 11/28/24 13:29 11/19/24 05:53 3.375 GM Sodium Chloride 1,000 ml @ 75 mls/hr [id number] IV 11/18/24 15:30 12/18/24 15:29 11/19/24 09:14 75 MLS/HR Sodium Chloride (NS 50ml) 50 ml AD IV 11/18/24 13:30 11/18/24 13:13 DC DIAGNOSTICS / RADIOLOGY: [ ] ASSESSMENT: Complicated urinary tract infection with sepsis, POA Dehydration, POA Acute diarrhea, POA Hypokalemia, POA Lactic acidosis, POA, 2/2 underlying sepsis Hypovolemic hyponatremia, POA Iron deficiency anemia, POA Leukocytosis, POA PLAN: Patient will be admitted to medical-surgical floor Urinalysis suggestive of significant UTI, we will follow up urine culture, blood culture We will obtain renal ultrasound and chest x-ray, flu and COVID panel Sepsis bolus of fluids will be given and we will start maintenance IV fluid with NS at 75 cc an hour, monitor lactic acid trend closely tonight We will have Infectious Disease follow up with the patient, patient received IV Rocephin in the ER, we will start patient on IV Zosyn renally dose We will see how patient progresses in the next 48-72 hours All labs will be repeated in the morning DVT prophylaxis with SCDs and Lovenox, GI prophylaxis with Pepcid Date of service: 11/18/2024 Plan of care was discussed with patient at bedside, Isidro Vera MD Advanced Care Planning: Which of the following were discussed: Hospice care: Yes __ No _X_ Therapeutic options: Yes _X_ No __ Advance directives: Yes _X_ No __ Other discussions: Discussed with who?: Patient Voluntary nature of this service was explained to the patient? Yes _x_ No __ Amount of time spent: 20 minutes MILTON ISAAC MD Nov 19, 2024 13:40
--- NOTE | 2024-11-20 00:01 | CONS ---
INFECTIOUS DISEASE CONSULTATION REQUESTING PHYSICIAN: Isidro Vera MD REASON FOR CONSULTATION: Gram-negative sepsis. HISTORY OF PRESENT ILLNESS: A 34-year-old female with no significant past medical history, presented to the hospital with suprapubic pain, fever and chills. The patient also complained of dysuria and urinary frequency. The patient denied cough or shortness of breath. The patient in the ER was found to have possible sepsis and has been admitted. Urinalysis was positive with wbc of 15, leukocyte esterase of 500 and positive nitrite. Procalcitonin also positive at 0.64. T-max was 102. No cough, no hemoptysis or pleuritic pain. Renal sonogram shows no evidence of hydronephrosis or stone. PAST MEDICAL HISTORY: None. PAST SURGICAL HISTORY: * section. * Tubal ligation. ALLERGIES: No known drug allergy. CURRENT MEDICATIONS: Reviewed. SOCIAL HISTORY: . No alcohol, tobacco or illicit drug use. FAMILY HISTORY: Noncontributory. REVIEW OF SYSTEMS: CONSTITUTIONAL: Positive for fever and chills. No weight loss or night sweats. EYES: No eye pain, no photophobia or diplopia. HENT: No sore throat, no rhinorrhea. NECK: No neck pain or neck swelling. RESPIRATORY: No cough, no hemoptysis or pleuritic pain. CARDIOVASCULAR: No chest pain, no palpitation or orthopnea. GASTROINTESTINAL: No nausea, vomiting or abdominal pain. GENITOURINARY: Positive for dysuria, urinary frequency, no hematuria. CENTRAL NERVOUS SYSTEM: No headache, dizziness, or slurred speech. PSYCHIATRY: No depression, no suicidal ideation. MUSCULOSKELETAL: No joint pain or joint swelling. PHYSICAL EXAMINATION: GENERAL: Young female, awake. VITAL SIGNS: Temperature 98.8, pulse 93, respiratory rate 19, BP 106/79. EYES: No icterus. Pupils equal and reactive. HENT: No oral thrush seen. Moist oral mucosa. BACK: Supple, no JVD or thyromegaly. LUNGS: Good air entry. No rales, no rhonchi. CARDIOVASCULAR: S1, S2 regular. No murmur heard. ABDOMEN: Full, soft, nontender. Bowel sound is present. CENTRAL NERVOUS SYSTEM: Awake, alert, oriented x 3. No focal deficits. SKIN: No rashes, no itchiness. LYMPHATIC: No peripheral lymphadenopathy. MUSCULOSKELETAL: No joint swelling, erythema or tenderness. BACK: No deformity, no pressure ulcer. LABORATORY DATA: Procalcitonin 0.64. Sodium 139, potassium 3.9, BUN 3, creatinine 0.6. WBC 8.5, hemoglobin 8.1, platelet 229. Urine culture is growing gram-negative lee. RADIOLOGY: Renal sonogram shows no obstruction or stone. ASSESSMENT: A 34-year-old female presenting with fever, chills and urinary symptoms. Current problems include: * Gram-negative sepsis. * Urinary tract infection. * Anemia. * Obesity. PLAN: * Continue Zosyn. * Follow up cultures. * Continue pain management. * Continue antiemetic. * Continue nutritional support. * Monitor electrolytes and correct as needed. * Antibiotic will be adjusted when cultures are updated or finalized. Thank you for allowing me to participate in the care of this patient. TID: [id number] RECEIPT: [id number]
[2024-11-20 03:46] VITALS: BP 108/75; PULSE 67; RESP 20; TEMP 98
[2024-11-20 08:00] VITALS: BP 121/80; PULSE 76; RESP 18; TEMP 97.9; O2SAT 97
[2024-11-20 12:00] VITALS: BP 124/79; PULSE 75; RESP 18; TEMP 97.9
--- NOTE | 2024-11-20 14:07 | DS ---
Discharge Summary Hospital Course Summary: A 34-year-old female presenting with fever, chills and urinary symptoms. Current problems include: * Gram-negative sepsis. * Urinary tract infection. * Anemia. * Obesity. Cultures were followed. Initially she was treated with IV antibiotics and responded well. Once final cultures and sensitivities were available Infectious Disease switch her to oral antibiotics and recommended that she can be discharged. She was discharged in stable condition Bar Tacker(s): ID Assessment/Plan: ASSESSMENT: Complicated urinary tract infection with sepsis, POA Dehydration, POA Acute diarrhea, POA Hypokalemia, POA Lactic acidosis, POA, 2/2 underlying sepsis Hypovolemic hyponatremia, POA Iron deficiency anemia, POA Leukocytosis, POA PLAN: Patient will be admitted to medical-surgical floor Urinalysis suggestive of significant UTI, we will follow up urine culture, blood culture We will obtain renal ultrasound and chest x-ray, flu and COVID panel Sepsis bolus of fluids will be given and we will start maintenance IV fluid with NS at 75 cc an hour, monitor lactic acid trend closely tonight We will have Infectious Disease follow up with the patient, patient received IV Rocephin in the ER, we will start patient on IV Zosyn renally dose We will see how patient progresses in the next 48-72 hours All labs will be repeated in the morning DVT prophylaxis with SCDs and Lovenox, GI prophylaxis with Pepcid Date of service: 11/18/2024 Plan of care was discussed with patient at bedside, Isidro Vera MD Advanced Care Planning: Which of the following were discussed: Hospice care: Yes __ No _X_ Therapeutic options: Yes _X_ No __ Advance directives: Yes _X_ No __ Other discussions: Discussed with who?: Patient Voluntary nature of this service was explained to the patient? Yes _x_ No __ Amount of time spent: 20 minutes Home Medications: Reported Medications Iron (Iron) 18 Mg Tablet, 18 MG PO DAILY, TAB 11/08/15 [id number]/Iron Fumarate/FA/Dss ( 19 Tablet) 1 Each Tablet, 1 EACH PO DAILY, TAB 11/08/15 MILTON ISAAC MD Nov 20, 2024 14:07
--- NOTE | 2024-11-20 15:10 | NUR ---
PATIENT DISCHARGED HOME ID BAND,TELE AND IV REMOVED. DISCHARGE INSTRUCTIONS EXPLAINED AND GIVEN TP PATIENT. MEDICINE SCRIPT GIVEN TO PATIENT. PATIENT VERBALIZED UNDERSTANDING.BELONGINGS PACKED AND TAKEN BY PATIENT. WHEELED DOWN TO PRIVATE CAR.
--- NOTE | 2024-11-20 15:42 | PN ---
INFECTIOUS DISEASE PROGRESS NOTE Date of Service: Nov 20, 2024 SUBJECTIVE: This is a 34-year-old female patient who was seen and examined at bedside in room 324. Patient is awake, alert and oriented x3. The final urine culture results came back positive for E coli. Patient had a low-grade fever of 99.7 last night but no fever this morning, temperature is 97.9. Patient has been receiving Zosyn IV every 8 hours. From Infectious Disease standpoint patient can be discharged to home on Vantin 200 mg p.o. b.i.d. x 7 days. Prescription was written. PHYSICAL EXAM EYES: Anicteric. Pupils equal and reactive. HENT: No oral thrush seen, moist Oral mucosa NECK: Supple, no JVD or thyromegaly. LUNGS: Good air entry. No rales, no rhonchi. CARDIOVASCULAR: S1, S2 regular. No murmur heard. ABDOMEN: Soft, non tender, bowel sounds present, no organomegaly CENTRAL NERVOUS SYSTEM: Awake, alert, oriented x 3. No focal deficits. SKIN: No rashes, no swelling. LYMPHATICS: No peripheral lymphadenopathy MUSCULOSKELETAL: No joint swelling, erythema or tenderness. EXTREMITIES: No cyanosis or clubbing BACK: No deformity, no pressure ulcer. GENITOURINARY: No dysuria or hematuria Vital Sign (Last 12 Hours) 11/20/24 11/20/24 11/20/24 11/20/24 03:46 08:00 08:00 12:00 Temp 98.1 97.9 97.9 Pulse 67 76 75 Resp 20 18 18 B/P (MAP) 108/75 121/80 124/79 Pulse Ox 98 97 97 100 O2 Delivery Room Air Room Air* Room Air O2 Flow Rate 0 FiO2 21 Intake & Output (last 24hrs) 11/19/24 11/19/24 11/20/24 15:00 23:00 07:00 Intake Total 50.0 ml 1250.0 ml Balance 50.0 ml 1250.0 ml LABS: Laboratory: Test 11/19/24 06:50 Range/Units White Blood Count 8.5 # 4.8-10.8 K/uL Red Blood Count 4.17 4.00-5.50 MIL/uL Hemoglobin 8.1 L 12.0-16.0 g/dL Hematocrit 28.8 L 36-48 % Mean Corpuscular Volume 69.1 L 79-99 fL Mean Corpuscular Hemoglobin 19.4 L 27.0-33.0 pg Mean Corpuscular Hemoglobin Concent 28.1 L 32.0-36.0 g/dL Red Cell Distribution Width 18.6 H 11.0-15.5 % Platelet Count 229 130-400 K/uL Mean Platelet Volume 10.5 7.5-10.5 fL Immature Granulocyte % (Auto) 0.4 0-1 % Neutrophils (%) (Auto) 71.6 40.0-77.0 % Lymphocytes (%) (Auto) 18.0 L 21.0-51.0 % Monocytes (%) (Auto) 9.2 3.0-13.0 % Eosinophils (%) (Auto) 0.6 0.0-8.0 % Basophils (%) (Auto) 0.2 0.0-5.0 % Neutrophils # (Auto) 6.1 1.8-7.7 K/uL Lymphocytes # (Auto) 1.5 1.0-4.8 K/uL Monocytes # (Auto) 0.8 0.1-1.0 K/uL Eosinophils # (Auto) 0.05 0.00-0.70 K/uL Basophils # (Auto) 0.02 0.00-0.20 K/uL Absolute Immature Granulocyte (auto 0.03 0-1 K/uL Nucleated Red Blood Cells 0.0 0.0-0.19 % Sodium Level 139 136-145 mmol/L Potassium Level 3.9 3.5-5.1 mmol/L Chloride Level 106 101-111 mmol/L Carbon Dioxide Level 27 21-32 mmol/L Blood Urea Nitrogen 3 L 7-18 mg/dL Creatinine 0.6 0.5-1.0 mg/dL Glomerular Filtration Rate Calc 122 >90 mL/min Random Glucose 97 70-105 mg/dL Total Calcium 8.4 L 8.5-10.1 mg/dL Magnesium Level 2.10 1.80-2.40 mg/dL Iron Level 14 L 50-170 mcg/dL Total Iron Binding Capacity 265 250-450 mcg/dL Percent Iron Saturation 5.2 L 22-44 % Ferritin 38 15-150 ng/mL Total Bilirubin 0.4 0.2-1.0 mg/dL Aspartate Amino Transf (AST/SGOT) 13 10-37 U/L Alanine Aminotransferase (ALT/SGPT) 19 12-78 U/L Alkaline Phosphatase 73 50-136 U/L Total Protein 7.0 # 6.0-8.3 g/dL Albumin 2.9 #L 3.5-5.0 g/dL DIAGNOSTICS / RADIOLOGY: PATIENT: YUNIEL BAE ACCT: [id number] LOC: [facility] U: [id number] AGE/SX: 34/F ROOM: [facility] [place] RE11/18/[address]: IZABEL JOHNSON MD : 1990 BED: 1 DIS: STATUS: ADM IN TLOC: SPEC: [id number] PATRICK: 11/18/24 STATUS: COMP REQ: [id number] RECD: 11/19/[address]: HELEN LUCIO SOURCE: [facility] [place] ENTR: 11/19/24 SEBAS LORENZO: NONE SPDESC: CLEAN CAT SELF,REFERRAL ORDERED: AERO ID & SENS Procedure Result Phyllis Date-Time AEROBIC ID & SENSITIVITIES Final 11/20/24-07 MRL COLONY DESCRIPTION: DAY 1: COLONY COUNT: >100,000 CFU/ML GRAM NEGATIVE RODS IDENTIFICATION AND SENSITIVITY TO FOLLOW ESCHERICHIA COLI E COLI M.I.C. RX --------- ---- AMPICILLIN >16 R AZTREONAM <=4 S CEFAZOLIN 4 I CEFTAZIDIME/AVIBACTAM <=8 S CEFTRIAXONE <=1 S GENTAMICIN <=2 S LEVOFLOXACIN <=0.5 S NITROFURANTOIN <=32 S MEROPENEM <=1 S PIPERACILLIN/TAZOBACTAM <=8 S TRIMETHOPRIM/SUFLAMETHOXAZOLE <=2/38 S ASSESSMENT: Urinary tract infection with E coli. PLAN: From Infectious Disease standpoint patient can be discharged to home on Vantin 200 mg p.o. b.i.d. x 7 days. Prescription was written and given to nurse. This case was reviewed and discussed with my supervising physician and the above assessment and plan was formulated and agreed upon. ATTESTATION BY PHYSICIAN I have seen and examined the patient. I reviewed the documentation, medical decision making, and treatment plan as noted by the mid-level provider above. I agree with the findings and plan of care. LE OSULLIVAN MD, MIRTA L [facility] Nov 20, 2024 15:41
--- NOTE | 2024-11-20 17:22 | NUR ---
[facility] Home Patient states lives with three children. 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 States able to complete ADL's on her own. Denies medical devices. Denies home health services, home care providers or dialysis. PCP - None per patient Pharmacy - [facility]. Upon discharge, Taylor Patrick, Mother [phone] and at this time denies any additional needs. Addendum: 11/20/24 at 1726 by LYNDA MACKAY RN CM Amended: Links added.
== END 2024-11-20 15:10 | disposition home or self-care (01) | DRG 872 ==
LOC: EDH 10:46 → EDHIP 13:04 → 3DH 21:34
PROVIDERS: ADMIT Internal Medicine; ATTEND Internal Medicine
DX: A41.50 Gram-negative sepsis, unspecified (principal); E87.1 Hypo-osmolality and hyponatremia; N39.0 Urinary tract infection, site not specified; E87.20 Acidosis, unspecified; E86.0 Dehydration; Z20.822 Contact with and (suspected) exposure to COVID-19; E87.6 Hypokalemia; D50.9 Iron deficiency anemia, unspecified; E66.9 Obesity, unspecified; B96.20 Unspecified Escherichia coli [E. coli] as the cause of diseases classified elsewhere; E86.1 Hypovolemia; Z79.899 Other long term (current) drug therapy; Z68.35 Body mass index [BMI] 35.0-35.9, adult
CPT/HCPCS: 36415; 71045; 76770; 80048; 80053; 80076; 81001; 82728; 83540; 83550; 83605; 83735; 84145; 84703; 85025; 85610; 85730; 86140; 87040; 87086; 87186; 87635; 87804; G0378; J0696; J2405; J2543; J3490; J7030